=== PATIENT | male | born 1965 | race Caucasian/White ===

== ENCOUNTER 2023-08-08 12:59 | Emergency (ER) | payer OTHER, SELFPAY ==
[2023-08-08] VITALS (31 sets, daily range): BP systolic 128–179; BP diastolic 93–141; PULSE 71–99; RESP 18; TEMP 36.9; O2SAT 93–97; BMI 30.1
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
[2023-08-08 13:28] LABS: Basophils Percent Auto 0.4 % (0.0-3.0); Hematocrit 45.9 % (37.0-53.0); Hemoglobin* 15.5 gm/dL (13.5-17.5); Immature Granulocytes Pct Auto 0.6 %; Lymphocytes Percent Auto 11.4 % (20-44); Mean Corpuscular HGB Conc 34 gm/dL (32-36); Mean Corpuscular Hemoglobin 31 pg (26-34); Mean Corpuscular Volume 91 fL (80-100); Monocytes Percent Auto 5.3 % (0.0-11.0); Neutrophils Percent Auto 81.3 % (42.0-72.0); Platelet Count* 351 K/uL (140-440); RDW Coefficient of Variation % 14.4 % (11.5-15.5); Red Blood Count 5.07 m/uL (4.30-5.90); White Blood Count* 13.59 K/uL (4.50-11.00)
[2023-08-08 13:38] LABS: Slide Review Reflex No
[2023-08-08] MEDS: KETOROLAC 15 MG/ML inj IVP (13:45)
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
[2023-08-08 14:11] LABS: Chloride* 109 mmol/L (96-114); Potassium* 3.8 mmol/L (3.6-5.1); Sodium* 140 mmol/L (135-149)
[2023-08-08 14:13] LABS: Creatinine* 0.8 mg/dL (0.5-1.5); Est. Creatinine Clearance* 105.19; Estimated Glomerular Filt Rate 103 ml/min
[2023-08-08 14:14] LABS: Anion Gap 8 mEq/L (7-15); Blood Urea Nitrogen* 13 mg/dL (7-30); Calcium* 9.3 mg/dL (8.4-10.6); Carbon Dioxide* 23 mmol/L (20-32); Glucose* 130 mg/dL (60-115)
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
[2023-08-08] MEDS: HYDROCODONE-ACETAMIN 5-325 MG 1 TAB PO (14:31)
== END 2023-08-08 16:39 | disposition home or self-care (01) ==
PROVIDERS: Emergency Provider Emergency Medicine; PCP Family Medicine
DX: S82.145A Nondisplaced bicondylar fracture of left tibia, initial encounter for closed fracture (principal); V27.49XA Other motorcycle driver injured in collision with fixed or stationary object in traffic accident, initial encounter; S70.12XA Contusion of left thigh, initial encounter; S50.02XA Contusion of left elbow, initial encounter
CPT/HCPCS: 36415; 70450; 73070; 73562; 73700; 80048; 85025; 99284; 99291; A9270; J1885